=== PATIENT | female | born 1935 | race Caucasian/White ===

== ENCOUNTER 2017-08-04 16:10 | Inpatient (IN) | payer OTHER ==
[~2017-08-04] VITALS: Ht 152.4 cm; Wt 78.2 kg
[2017-08-04 16:45] LABS: BASOPHIL (%) 0.7 % (0-1); EOSINOPHIL (%) 0.3 % (0-5); HEMATOCRIT 30.6 % (36.0-46.0); HEMOGLOBIN 10.2 G/DL (11.9-15.5); IMMATURE GRANULOCYTE (%) 0.2 % (0.0-0.7); LYMPHOCYTE (%) 9.6 % (15-42); LYMPHOCYTE COUNT 0.6 K/uL (1.0-2.8); MCHC 33.3 G/DL (30.0-36.0); MONOCYTE (%) 15.7 % (3-12); MONOCYTE COUNT 0.9 K/uL (0-0.8); NEUTROPHIL (%) 73.5 % (45-76); NEUTROPHIL COUNT 4.3 K/uL (1.8-6.4); PLATELET COUNT 279 K/uL (156-360); RBC DIS.WIDTH-CV 15.2 % (11.8-14.6); RBC DIS.WIDTH-SD 52.3 % (39-53); RED BLOOD COUNT 3.29 M/uL (3.80-5.20); WHITE BLOOD COUNT 5.9 K/uL (4.1-10.2)
[2017-08-04 16:57] LABS: ALBUMIN 3.6 g/dL (3.2-4.8); CHLORIDE 89 mEq/L (99-109); POTASSIUM 5.4 mEq/L (3.7-5.4); SODIUM 125 mEq/L (136-147)
[2017-08-04 16:59] LABS: GLUCOSE 138 mg/dL (70-99); TOTAL PROTEIN 7.6 g/dL (6.4-8.3)
[2017-08-04 17:01] LABS: TOTAL BILIRUBIN 1.4 mg/dL (0.0-1.0)
[2017-08-04 17:03] LABS: ALKALINE PHOSPHATASE 128 IU/L (3-129); CREATININE 1.4 mg/dL (0.6-1.3)
[2017-08-04 17:04] LABS: UREA NITROGEN (BUN) 34 mg/dL (9-23)
[2017-08-04 17:05] LABS: AST (GOT) 25 IU/L (2-34); GFR ESTIMATE (CALCULATED) 38 mL/min/
[2017-08-04 17:06] LABS: ALT (GPT) 15 IU/L (3-49)
[2017-08-04 17:08] LABS: TROP-I INTERPRETATION NEGATIVE; TROPONIN-I 0.04 ng/mL (0.0-0.30)
[2017-08-04 18:24] LABS: APPEARANCE CLEAR ((CLEAR)); BILIRUBIN NEGATIVE; BLOOD NEGATIVE; COLOR YELLOW ((YELLOW)); GLUCOSE (STRIP) NEGATIVE; KETONES NEGATIVE; LEUKOCYTES NEGATIVE; NITRITE NEGATIVE; PROTEIN (STRIP) NEGATIVE; SPECIFIC GRAVITY 1.008 (1.000-1.030); UCUL ADDED? NO; UROBILINOGEN 0.2 MG/DL (0.2-1.0)
[2017-08-04] MEDS ORDERED: PULMICORT0.5 MG/21 IH (18:58)
[2017-08-04] MEDS ORDERED: ALDACTONE25 MG PO (18:58)
[2017-08-04] MEDS ORDERED: CORDARONE200 MG PO (18:58)
[2017-08-04] MEDS ORDERED: AMLACTIN140 GM TP (18:59)
[2017-08-04] MEDS ORDERED: LASIX20 MG PO (18:59)
[2017-08-04] MEDS ORDERED: NIZORAL 2% CREA15 GM TP (18:59)
[2017-08-04] MEDS ORDERED: PERFOROMIS20 MCG/2 M IH (19:00)
[2017-08-04] MEDS ORDERED: PEPCID20 MG PO (19:00)
[2017-08-04] MEDS ORDERED: ELIQUIS5 MG PO (19:00)
[2017-08-04] MEDS ORDERED: CONSTULOSE10 GM/15 M PO (19:00)
[2017-08-04] MEDS ORDERED: CENTRUM SILVER1 EAC3 PO (19:01)
[2017-08-04] MEDS ORDERED: VITAMIN D31000 UNI2 PO (19:01)
[2017-08-04] MEDS ORDERED: MELATONIN3 MG PO (19:01)
[2017-08-04] MEDS ORDERED: SENNA-S TABLET1 EACH PO (19:01)
[2017-08-04] MEDS ORDERED: BIOFREEZE TP (19:02)
[2017-08-04] MEDS ORDERED: TYLENOL EXTRA500 MG PO (19:02)
[2017-08-04 21:47] VITALS: BP 104/56
[2017-08-04 23:50] VITALS: BP 106/52
[2017-08-05] VITALS (8 sets, daily range): BP systolic 91–161; BP diastolic 43–74
[2017-08-05 06:13] LABS: BASOPHIL COUNT 0.1 K/uL (0-0.1); EOSINOPHIL (%) 1.6 % (0-5); EOSINOPHIL COUNT 0.1 K/uL (0-0.3); HEMOGLOBIN 9.2 G/DL (11.9-15.5); IMMATURE GRANULOCYTE (%) 0.4 % (0.0-0.7); LYMPHOCYTE (%) 14.6 % (15-42); LYMPHOCYTE COUNT 0.8 K/uL (1.0-2.8); MCH 29.8 PG (29.0-34.0); MCHC 31.7 G/DL (30.0-36.0); MCV 93.9 FL (83-99); MONOCYTE (%) 17.3 % (3-12); MONOCYTE COUNT 0.9 K/uL (0-0.8); NEUTROPHIL (%) 65.1 % (45-76); NEUTROPHIL COUNT 3.3 K/uL (1.8-6.4); PLATELET COUNT 263 K/uL (156-360); RBC DIS.WIDTH-CV 15.3 % (11.8-14.6); RBC DIS.WIDTH-SD 52.6 % (39-53); RED BLOOD COUNT 3.09 M/uL (3.80-5.20); WHITE BLOOD COUNT 5.1 K/uL (4.1-10.2)
[2017-08-05 06:25] LABS: ALKALINE PHOSPHATASE 105 IU/L (3-129); ALT (GPT) 11 IU/L (3-49); AST (GOT) 17 IU/L (2-34); CHLORIDE 88 MEQ/L (99-109); CREATININE 1.2 MG/DL (0.6-1.3); GFR ESTIMATE (CALCULATED) 45 mL/min/; POTASSIUM 4.6 MEQ/L (3.7-5.4); SODIUM 126 MEQ/L (136-147); TOTAL BILIRUBIN 0.9 MG/DL (0.0-1.0); TOTAL PROTEIN 6.3 G/DL (6.4-8.3); UREA NITROGEN (BUN) 32 mg/dL (9-23)
[2017-08-05 06:31] LABS: GLUCOSE 100 mg/dL (70-99)
[2017-08-05 08:53] LABS: URIC ACID 6.6 mg/dL (3.1-9.2)
[2017-08-05 19:11] LABS: ALBUMIN 3.2 G/DL (3.2-4.8); CHLORIDE 85 MEQ/L (99-109); CREATININE 1.3 MG/DL (0.6-1.3); GFR ESTIMATE (CALCULATED) 41 mL/min/; PHOSPHORUS 3.7 mg/dL (2.5-4.9); POTASSIUM 5.2 MEQ/L (3.7-5.4); SODIUM 124 MEQ/L (136-147); UREA NITROGEN (BUN) 31 mg/dL (9-23)
[2017-08-05 19:44] LABS: GLUCOSE 161 mg/dL (70-99)
[2017-08-06 04:03] VITALS: BP 122/58
[2017-08-06 07:14] VITALS: BP 126/60
[2017-08-06 08:59] LABS: HEMATOCRIT 32.2 % (36.0-46.0); HEMOGLOBIN 10.3 G/DL (11.9-15.5); MCH 30.4 PG (29.0-34.0); RBC DIS.WIDTH-CV 15.6 % (11.8-14.6); RBC DIS.WIDTH-SD 53.9 % (39-53); RED BLOOD COUNT 3.39 M/uL (3.80-5.20); WHITE BLOOD COUNT 5.5 K/uL (4.1-10.2)
[2017-08-06 09:23] LABS: CHLORIDE 85 MEQ/L (99-109); CREATININE 1.2 MG/DL (0.6-1.3); GFR ESTIMATE (CALCULATED) 45 mL/min/; GLUCOSE 149 mg/dL (70-99); POTASSIUM 4.8 MEQ/L (3.7-5.4); SODIUM 125 MEQ/L (136-147); UREA NITROGEN (BUN) 33 mg/dL (9-23)
[2017-08-06 09:45] LABS: PLAT.SUFFICIENCY ADEQUATE; PLATELET COUNT 303 K/uL (156-360)
[2017-08-06 11:10] VITALS: BP 135/61
[2017-08-06 15:22] VITALS: BP 141/65
[2017-08-06 20:18] VITALS: BP 140/77
[2017-08-07 00:49] VITALS: BP 103/58
[2017-08-07 04:11] VITALS: BP 107/51
[2017-08-07 05:42] LABS: BASOPHIL (%) 0.9 % (0-1); BASOPHIL COUNT 0.1 K/uL (0-0.1); EOSINOPHIL (%) 1.3 % (0-5); EOSINOPHIL COUNT 0.1 K/uL (0-0.3); HEMATOCRIT 30.8 % (36.0-46.0); HEMOGLOBIN 9.7 G/DL (11.9-15.5); IMMATURE GRANULOCYTE (%) 0.2 % (0.0-0.7); LYMPHOCYTE (%) 16.7 % (15-42); LYMPHOCYTE COUNT 0.9 K/uL (1.0-2.8); MCH 29.8 PG (29.0-34.0); MCHC 31.5 G/DL (30.0-36.0); MCV 94.5 FL (83-99); MONOCYTE (%) 14.1 % (3-12); MONOCYTE COUNT 0.8 K/uL (0-0.8); NEUTROPHIL (%) 66.8 % (45-76); NEUTROPHIL COUNT 3.7 K/uL (1.8-6.4); PLATELET COUNT 281 K/uL (156-360); RBC DIS.WIDTH-CV 14.9 % (11.8-14.6); RED BLOOD COUNT 3.26 M/uL (3.80-5.20); WHITE BLOOD COUNT 5.5 K/uL (4.1-10.2)
[2017-08-07 07:06] VITALS: BP 119/77
[2017-08-07 07:36] LABS: CHLORIDE 86 MEQ/L (99-109); CREATININE 1.2 MG/DL (0.6-1.3); GFR ESTIMATE (CALCULATED) 45 mL/min/; POTASSIUM 5.5 MEQ/L (3.7-5.4); SODIUM 126 MEQ/L (136-147); UREA NITROGEN (BUN) 35 mg/dL (9-23)
[2017-08-07 07:37] LABS: GLUCOSE 106 mg/dL (70-99)
[2017-08-07 09:29] LABS: HEMOGLOBIN A1c (GLYCOHEMOGLOB) 5.4 % (Below 5.7)
[2017-08-07 11:53] VITALS: BP 137/67
[2017-08-07 16:29] VITALS: BP 121/58
[2017-08-07 16:53] LABS: CHLORIDE 86 MEQ/L (99-109); CREATININE 1.2 MG/DL (0.6-1.3); GFR ESTIMATE (CALCULATED) 45 mL/min/; GLUCOSE 152 mg/dL (70-99); POTASSIUM 4.8 MEQ/L (3.7-5.4); SODIUM 126 MEQ/L (136-147); UREA NITROGEN (BUN) 34 mg/dL (9-23)
[2017-08-07 20:12] VITALS: BP 133/66
[2017-08-08] VITALS (8 sets, daily range): BP systolic 115–143; BP diastolic 52–79
[2017-08-08 05:40] LABS: BASOPHIL (%) 0.8 % (0-1); BASOPHIL COUNT 0.1 K/uL (0-0.1); EOSINOPHIL (%) 1.4 % (0-5); EOSINOPHIL COUNT 0.1 K/uL (0-0.3); HEMATOCRIT 31.1 % (36.0-46.0); HEMOGLOBIN 9.9 G/DL (11.9-15.5); IMMATURE GRANULOCYTE (%) 0.5 % (0.0-0.7); LYMPHOCYTE (%) 14.6 % (15-42); LYMPHOCYTE COUNT 0.9 K/uL (1.0-2.8); MCH 30.1 PG (29.0-34.0); MCHC 31.8 G/DL (30.0-36.0); MCV 94.5 FL (83-99); MONOCYTE (%) 14.9 % (3-12); MONOCYTE COUNT 0.9 K/uL (0-0.8); NEUTROPHIL (%) 67.8 % (45-76); PLATELET COUNT 291 K/uL (156-360); RBC DIS.WIDTH-CV 14.9 % (11.8-14.6); RBC DIS.WIDTH-SD 51.9 % (39-53); RED BLOOD COUNT 3.29 M/uL (3.80-5.20); WHITE BLOOD COUNT 5.9 K/uL (4.1-10.2)
[2017-08-08 06:04] LABS: CHLORIDE 85 MEQ/L (99-109); CREATININE 1.2 MG/DL (0.6-1.3); GFR ESTIMATE (CALCULATED) 45 mL/min/; POTASSIUM 4.7 MEQ/L (3.7-5.4); SODIUM 125 MEQ/L (136-147); UREA NITROGEN (BUN) 32 mg/dL (9-23)
[2017-08-08 06:09] LABS: GLUCOSE 99 mg/dL (70-99)
[2017-08-08 12:52] LABS: BASE EXCESS 8.9 mEq/L (-3 to +3); BICARBONATE 36.9 mEq/L (22-26); COMMENTS - BLOOD GASES A+C+; DEVICE NC; METHEMOGLOBIN 1.6 % (0-1.5); O2 FLOW 2 L/MIN; PCO2 70 mm Hg (35-45); PO2 80 mm Hg (80-100); SITE LR; TOTAL RESP RATE 24 resp/min; pH 7.33 (7.35-7.45)
[2017-08-08 16:16] LABS: BASE EXCESS 8.4 mEq/L (-3 to +3); BICARBONATE 36.9 mEq/L (22-26); CARBOXY HGB 2.3 % (0-5); COMMENTS - BLOOD GASES A+C+; DEVICE NC; METHEMOGLOBIN 1.5 % (0-1.5); O2 FLOW 2 L/MIN; PCO2 75 mm Hg (35-45); PO2 76 mm Hg (80-100); SITE RR
[2017-08-08 17:10] LABS: CHLORIDE 86 MEQ/L (99-109); POTASSIUM 4.9 MEQ/L (3.7-5.4); SODIUM 124 MEQ/L (136-147)
[2017-08-08 17:16] LABS: CREATININE 1.2 MG/DL (0.6-1.3); GFR ESTIMATE (CALCULATED) 45 mL/min/; UREA NITROGEN (BUN) 34 mg/dL (9-23)
[2017-08-08 17:28] LABS: GLUCOSE 152 mg/dL (70-99)
[2017-08-09 05:58] LABS: ALBUMIN 3.2 G/DL (3.2-4.8); CHLORIDE 86 MEQ/L (99-109); CREATININE 1.2 MG/DL (0.6-1.3); GFR ESTIMATE (CALCULATED) 45 mL/min/; GLUCOSE 169 mg/dL (70-99); PHOSPHORUS 3.4 mg/dL (2.5-4.9); POTASSIUM 4.4 MEQ/L (3.7-5.4); SODIUM 127 MEQ/L (136-147); UREA NITROGEN (BUN) 35 mg/dL (9-23)
[2017-08-09 09:00] VITALS: BP 124/57
[2017-08-09 12:00] VITALS: BP 145/65
[2017-08-09 16:22] VITALS: BP 148/77
[2017-08-09 17:47] VITALS: BP 133/60
[2017-08-10] VITALS (7 sets, daily range): BP systolic 110–140; BP diastolic 57–64
[2017-08-10 05:41] LABS: ALBUMIN 3.4 G/DL (3.2-4.8); CHLORIDE 85 MEQ/L (99-109); CREATININE 1.3 MG/DL (0.6-1.3); GFR ESTIMATE (CALCULATED) 41 mL/min/; GLUCOSE 172 mg/dL (70-99); PHOSPHORUS 3.8 mg/dL (2.5-4.9); POTASSIUM 4.2 MEQ/L (3.7-5.4); SODIUM 130 MEQ/L (136-147); UREA NITROGEN (BUN) 43 mg/dL (9-23)
[2017-08-11 04:00] VITALS: BP 129/60
[2017-08-11 05:48] LABS: BASOPHIL (%) 0 % (0-1); EOSINOPHIL (%) 0 % (0-5); HEMATOCRIT 30.8 % (36.0-46.0); HEMOGLOBIN 9.9 G/DL (11.9-15.5); IMMATURE GRANULOCYTE (%) 0.3 % (0.0-0.7); LYMPHOCYTE (%) 3.1 % (15-42); LYMPHOCYTE COUNT 0.2 K/uL (1.0-2.8); MCH 30.6 PG (29.0-34.0); MCHC 32.1 G/DL (30.0-36.0); MCV 95.1 FL (83-99); MONOCYTE (%) 3.6 % (3-12); MONOCYTE COUNT 0.2 K/uL (0-0.8); NEUTROPHIL COUNT 5.4 K/uL (1.8-6.4); NRBC (%) 0.3 /100 WBC (0-0); PLATELET COUNT 272 K/uL (156-360); RBC DIS.WIDTH-CV 15.1 % (11.8-14.6); RBC DIS.WIDTH-SD 52.7 % (39-53); RED BLOOD COUNT 3.24 M/uL (3.80-5.20); WHITE BLOOD COUNT 5.8 K/uL (4.1-10.2)
[2017-08-11 06:15] LABS: ALBUMIN 3.3 G/DL (3.2-4.8); CHLORIDE 86 MEQ/L (99-109); CREATININE 1.3 MG/DL (0.6-1.3); GFR ESTIMATE (CALCULATED) 41 mL/min/; GLUCOSE 171 mg/dL (70-99); PHOSPHORUS 4.6 mg/dL (2.5-4.9); POTASSIUM 3.7 MEQ/L (3.7-5.4); SODIUM 132 MEQ/L (136-147); UREA NITROGEN (BUN) 52 mg/dL (9-23)
[2017-08-11 09:18] LABS: BICARBONATE 44.6 mEq/L (22-26); CARBOXY HGB 2.1 % (0-5); COMMENTS - BLOOD GASES A+C+; DEVICE NC; METHEMOGLOBIN 1.9 % (0-1.5); O2 FLOW 4 L/MIN; PCO2 79 mm Hg (35-45); PO2 78 mm Hg (80-100); SITE LR; TOTAL RESP RATE 22 resp/min; pH 7.36 (7.35-7.45)
[2017-08-11 09:35] VITALS: BP 136/77
[2017-08-11 12:34] VITALS: BP 126/74
[2017-08-11 19:30] VITALS: BP 134/62
[2017-08-11 23:00] VITALS: BP 124/60
[2017-08-12 04:30] VITALS: BP 120/62
[2017-08-12 05:22] LABS: BASOPHIL (%) 0 % (0-1); EOSINOPHIL (%) 0 % (0-5); HEMATOCRIT 33.1 % (36.0-46.0); HEMOGLOBIN 10.3 G/DL (11.9-15.5); IMMATURE GRANULOCYTE (%) 0.5 % (0.0-0.7); LYMPHOCYTE (%) 3.6 % (15-42); LYMPHOCYTE COUNT 0.2 K/uL (1.0-2.8); MCH 29.8 PG (29.0-34.0); MCHC 31.1 G/DL (30.0-36.0); MCV 95.7 FL (83-99); MONOCYTE (%) 6.3 % (3-12); MONOCYTE COUNT 0.4 K/uL (0-0.8); NEUTROPHIL (%) 89.6 % (45-76); NEUTROPHIL COUNT 5.7 K/uL (1.8-6.4); PLATELET COUNT 263 K/uL (156-360); RBC DIS.WIDTH-SD 52.7 % (39-53); RED BLOOD COUNT 3.46 M/uL (3.80-5.20); WHITE BLOOD COUNT 6.4 K/uL (4.1-10.2)
[2017-08-12 05:49] LABS: ALBUMIN 3.2 G/DL (3.2-4.8); ALKALINE PHOSPHATASE 107 IU/L (3-129); ALT (GPT) 19 IU/L (3-49); AST (GOT) 22 IU/L (2-34); CHLORIDE 88 MEQ/L (99-109); CREATININE 1.6 MG/DL (0.6-1.3); DIRECT BILIRUBIN 0.3 mg/dL (0.0-0.3); GFR ESTIMATE (CALCULATED) 33 mL/min/; GLUCOSE 169 mg/dL (70-99); SODIUM 138 MEQ/L (136-147); TOTAL BILIRUBIN 0.9 MG/DL (0.0-1.0); TOTAL PROTEIN 6.6 G/DL (6.4-8.3); UREA NITROGEN (BUN) 64 mg/dL (9-23)
[2017-08-12 07:41] VITALS: BP 143/73
[2017-08-12 10:53] VITALS: BP 114/59
[2017-08-12 16:15] VITALS: BP 125/60
[2017-08-12 19:00] VITALS: BP 141/66
[2017-08-12 22:30] VITALS: BP 98/56
[2017-08-13 03:30] VITALS: BP 136/67
[2017-08-13 05:26] LABS: BASOPHIL (%) 0.1 % (0-1); EOSINOPHIL (%) 0 % (0-5); HEMATOCRIT 32.8 % (36.0-46.0); HEMOGLOBIN 10.2 G/DL (11.9-15.5); IMMATURE GRANULOCYTE (%) 0.6 % (0.0-0.7); LYMPHOCYTE (%) 4.6 % (15-42); LYMPHOCYTE COUNT 0.3 K/uL (1.0-2.8); MCH 29.8 PG (29.0-34.0); MCHC 31.1 G/DL (30.0-36.0); MCV 95.9 FL (83-99); MONOCYTE (%) 6.6 % (3-12); MONOCYTE COUNT 0.4 K/uL (0-0.8); NEUTROPHIL (%) 88.1 % (45-76); NEUTROPHIL COUNT 5.9 K/uL (1.8-6.4); PLATELET COUNT 241 K/uL (156-360); RBC DIS.WIDTH-CV 14.8 % (11.8-14.6); RBC DIS.WIDTH-SD 52.1 % (39-53); RED BLOOD COUNT 3.42 M/uL (3.80-5.20); WHITE BLOOD COUNT 6.7 K/uL (4.1-10.2)
[2017-08-13 06:20] LABS: CHLORIDE 87 MEQ/L (99-109); CREATININE 1.6 MG/DL (0.6-1.3); GFR ESTIMATE (CALCULATED) 33 mL/min/; GLUCOSE 176 mg/dL (70-99); POTASSIUM 4.1 MEQ/L (3.7-5.4); SODIUM 134 MEQ/L (136-147); UREA NITROGEN (BUN) 72 mg/dL (9-23)
[2017-08-13 07:16] VITALS: BP 147/74
[2017-08-13 11:57] VITALS: BP 138/61
[2017-08-13 15:08] VITALS: BP 134/72
[2017-08-13 19:40] VITALS: BP 137/65
[2017-08-14] VITALS (8 sets, daily range): BP systolic 130–154; BP diastolic 60–77
[2017-08-14 05:19] LABS: BASOPHIL (%) 0.2 % (0-1); EOSINOPHIL (%) 0 % (0-5); HEMATOCRIT 33.6 % (36.0-46.0); HEMOGLOBIN 10.6 G/DL (11.9-15.5); IMMATURE GRANULOCYTE (%) 0.8 % (0.0-0.7); LYMPHOCYTE (%) 3.5 % (15-42); LYMPHOCYTE COUNT 0.2 K/uL (1.0-2.8); MCH 30.6 PG (29.0-34.0); MCHC 31.5 G/DL (30.0-36.0); MCV 97.1 FL (83-99); MONOCYTE (%) 7.5 % (3-12); MONOCYTE COUNT 0.5 K/uL (0-0.8); NEUTROPHIL COUNT 5.9 K/uL (1.8-6.4); PLATELET COUNT 229 K/uL (156-360); RBC DIS.WIDTH-CV 14.7 % (11.8-14.6); RBC DIS.WIDTH-SD 52.7 % (39-53); RED BLOOD COUNT 3.46 M/uL (3.80-5.20); WHITE BLOOD COUNT 6.7 K/uL (4.1-10.2)
[2017-08-14 05:49] LABS: CREATININE 1.5 MG/DL (0.6-1.3); GLUCOSE 189 mg/dL (70-99); UREA NITROGEN (BUN) 69 mg/dL (9-23)
[2017-08-14 05:50] LABS: CARBON DIOXIDE (BICARBONATE) > 40.0 MEQ/L (20-31); CHLORIDE 87 MEQ/L (99-109); GFR ESTIMATE (CALCULATED) 35 mL/min/; POTASSIUM 3.9 MEQ/L (3.7-5.4); SODIUM 137 MEQ/L (136-147)
[2017-08-14 07:31] LABS: INTER. NORMALIZED RATIO 1.3
[2017-08-14 07:34] LABS: PTT 29.5 SEC (25-37)
[2017-08-14 17:10] LABS: CHLORIDE 89 MEQ/L (99-109); POTASSIUM 4.3 MEQ/L (3.7-5.4); SODIUM 137 MEQ/L (136-147)
[2017-08-14 17:11] LABS: CARBON DIOXIDE (BICARBONATE) > 40.0 MEQ/L (20-31)
[2017-08-14 17:17] LABS: CREATININE 1.4 MG/DL (0.6-1.3); GFR ESTIMATE (CALCULATED) 38 mL/min/; GLUCOSE 164 mg/dL (70-99); UREA NITROGEN (BUN) 69 mg/dL (9-23)
[2017-08-15] VITALS (7 sets, daily range): BP systolic 128–150; BP diastolic 60–85
[2017-08-15 05:27] LABS: BASOPHIL (%) 0.1 % (0-1); EOSINOPHIL (%) 0 % (0-5); HEMATOCRIT 34.8 % (36.0-46.0); HEMOGLOBIN 10.5 G/DL (11.9-15.5); IMMATURE GRANULOCYTE (%) 0.5 % (0.0-0.7); LYMPHOCYTE COUNT 0.2 K/uL (1.0-2.8); MCH 30.3 PG (29.0-34.0); MCHC 30.2 G/DL (30.0-36.0); MCV 100.3 FL (83-99); MONOCYTE (%) 4.8 % (3-12); MONOCYTE COUNT 0.4 K/uL (0-0.8); NEUTROPHIL (%) 91.6 % (45-76); NEUTROPHIL COUNT 6.7 K/uL (1.8-6.4); PLATELET COUNT 192 K/uL (156-360); RBC DIS.WIDTH-CV 14.9 % (11.8-14.6); RBC DIS.WIDTH-SD 55.2 % (39-53); RED BLOOD COUNT 3.47 M/uL (3.80-5.20); WHITE BLOOD COUNT 7.3 K/uL (4.1-10.2)
[2017-08-15 06:23] LABS: CHLORIDE 89 MEQ/L (99-109); CREATININE 1.5 MG/DL (0.6-1.3); GFR ESTIMATE (CALCULATED) 35 mL/min/; GLUCOSE 195 mg/dL (70-99); POTASSIUM 4.8 MEQ/L (3.7-5.4); SODIUM 136 MEQ/L (136-147); UREA NITROGEN (BUN) 75 mg/dL (9-23)
[2017-08-15 16:50] LABS: APPEARANCE CLEAR ((CLEAR)); BILIRUBIN NEGATIVE; BLOOD NEGATIVE; COLOR YELLOW ((YELLOW)); GLUCOSE (STRIP) NEGATIVE; KETONES NEGATIVE; LEUKOCYTES SMALL; NITRITE NEGATIVE; PROTEIN (STRIP) NEGATIVE; SPECIFIC GRAVITY 1.016 (1.000-1.030); UROBILINOGEN 0.2 MG/DL (0.2-1.0)
[2017-08-15 16:57] LABS: BACTERIA NONE SEEN /HPF; EPITHELIAL CELLS 1+ /HPF; MUCUS TRACE /LPF; RED BLOOD CELLS 0-5 /HPF (0-5); UCUL ADDED? YES
[2017-08-16 04:04] VITALS: BP 129/60
[2017-08-16 06:00] LABS: BASOPHIL (%) 0 % (0-1); EOSINOPHIL (%) 0 % (0-5); HEMATOCRIT 35.1 % (36.0-46.0); HEMOGLOBIN 10.6 G/DL (11.9-15.5); IMMATURE GRANULOCYTE (%) 0.4 % (0.0-0.7); LYMPHOCYTE (%) 4.2 % (15-42); LYMPHOCYTE COUNT 0.3 K/uL (1.0-2.8); MCH 30.4 PG (29.0-34.0); MCHC 30.2 G/DL (30.0-36.0); MCV 100.6 FL (83-99); MONOCYTE (%) 6.9 % (3-12); MONOCYTE COUNT 0.5 K/uL (0-0.8); NEUTROPHIL (%) 88.5 % (45-76); NEUTROPHIL COUNT 6.1 K/uL (1.8-6.4); PLATELET COUNT 179 K/uL (156-360); RBC DIS.WIDTH-CV 14.5 % (11.8-14.6); RBC DIS.WIDTH-SD 53.2 % (39-53); RED BLOOD COUNT 3.49 M/uL (3.80-5.20); WHITE BLOOD COUNT 6.9 K/uL (4.1-10.2)
[2017-08-16 06:26] LABS: ALBUMIN 3.3 G/DL (3.2-4.8); CHLORIDE 87 MEQ/L (99-109); CREATININE 1.4 MG/DL (0.6-1.3); GFR ESTIMATE (CALCULATED) 38 mL/min/; GLUCOSE 180 mg/dL (70-99); PHOSPHORUS 4.6 mg/dL (2.5-4.9); POTASSIUM 4.6 MEQ/L (3.7-5.4); SODIUM 136 MEQ/L (136-147); UREA NITROGEN (BUN) 82 mg/dL (9-23)
[2017-08-16 06:37] LABS: CARBON DIOXIDE (BICARBONATE) > 40.0 MEQ/L (20-31)
[2017-08-16 08:00] VITALS: BP 148/68
[2017-08-16 10:28] VITALS: BP 133/61
[2017-08-16] MEDS ORDERED: DOXYCYCLINE HY100 M3 PO (11:22)
[2017-08-16] MEDS ORDERED: ELIQUIS2.5 MG PO (11:22)
[2017-08-16] MEDS ORDERED: DILTIAZEM 24HR120 MG PO (11:23)
[2017-08-16] MEDS ORDERED: BUMETANIDE1 MG PO (11:23)
[2017-08-16] MEDS ORDERED: SPIRIVA RESPIMAT4 GM IH (11:23)
[2017-08-16 14:35] LABS: BASE EXCESS 17.7 mEq/L (-3 to +3); BICARBONATE 46.9 mEq/L (22-26); CARBOXY HGB 2.3 % (0-5); METHEMOGLOBIN 1.8 % (0-1.5); pH 7.35 (7.35-7.45)
[2017-08-16 14:36] LABS: PCO2 85 mm Hg (35-45); PO2 57 mm Hg (80-100); SITE RR
[2017-08-16 14:37] LABS: COMMENTS - BLOOD GASES A+C+; DEVICE NC; O2 FLOW 2 L/MIN; TOTAL RESP RATE 12 resp/min
[2017-08-16 15:21] VITALS: BP 127/60
== END 2017-08-16 16:11 | DRG 291 ==
LOC: EME 16:10 → 2EAST 19:55 → EDOF 19:55 → ENRESERV 19:57 → 2EAST 21:16 → ENRESERV 08-08 16:52 → 4EAST 08-08 18:06 → ENPENDDIS 08-16 → ENRESERV 08-16 09:09 → CANRESERV 08-16 09:09 → 4EAST 08-16 16:11
PROVIDERS: Emergency Medicine; Hospitalist; Internal Medicine; Internal Medicine Nephrology; Radiology Diagnostic Radiology; Student in an Organized Health Care Education/Training Program
PROC: 5A09357 Assistance with Respiratory Ventilation, Less than 24 Consecutive Hours, Continuous Positive Airway Pressure (ICD-10-PCS; principal; 2017-08-11)
PROC: 0WBH3ZX Excision of Retroperitoneum, Percutaneous Approach, Diagnostic (ICD-10-PCS; 2017-08-14)
DX: I13.0 Hypertensive heart and chronic kidney disease with heart failure and stage 1 through stage 4 chronic kidney disease, or unspecified chronic kidney disease (principal); I50.33 Acute on chronic diastolic (congestive) heart failure; N18.3 Chronic kidney disease, stage 3 (moderate); J18.9 Pneumonia, unspecified organism; J44.0 Chronic obstructive pulmonary disease with (acute) lower respiratory infection; J44.1 Chronic obstructive pulmonary disease with (acute) exacerbation; E87.1 Hypo-osmolality and hyponatremia; E87.4 Mixed disorder of acid-base balance; T50.2X5A Adverse effect of carbonic-anhydrase inhibitors, benzothiadiazides and other diuretics, initial encounter; R06.03 Acute respiratory distress; N28.9 Disorder of kidney and ureter, unspecified; I27.22 Pulmonary hypertension due to left heart disease; I08.3 Combined rheumatic disorders of mitral, aortic and tricuspid valves; I48.1 Persistent atrial fibrillation; G93.41 Metabolic encephalopathy; R19.00 Intra-abdominal and pelvic swelling, mass and lump, unspecified site; D63.8 Anemia in other chronic diseases classified elsewhere; E87.5 Hyperkalemia; E87.8 Other disorders of electrolyte and fluid balance, not elsewhere classified; G47.33 Obstructive sleep apnea (adult) (pediatric); K21.9 Gastro-esophageal reflux disease without esophagitis; Z53.20 Procedure and treatment not carried out because of patient's decision for unspecified reasons; Z66 Do not resuscitate; Z77.22 Contact with and (suspected) exposure to environmental tobacco smoke (acute) (chronic); Z96.651 Presence of right artificial knee joint; E66.9 Obesity, unspecified; Z68.33 Body mass index [BMI] 33.0-33.9, adult; Z79.02 Long term (current) use of antithrombotics/antiplatelets; Z91.81 History of falling; Z87.440 Personal history of urinary (tract) infections; Z99.81 Dependence on supplemental oxygen; Z88.2 Allergy status to sulfonamides; Z88.8 Allergy status to other drugs, medicaments and biological substances
CPT/HCPCS: 36600; 71045; 71046; 71250; 72170; 74176; 76770; 77012; 80048; 80048 91; 80053; 80069; 80076; 81003; 82140; 82803; 83036; 83735; 83880; 83930; 83935; 84145 90; 84295; 84300; 84484; 84550; 85025; 85027; 85610; 85730; 87086; 87449; 88305; 93005; 93306; 94640; 94640 76; 94660; 94760; 94799; 97530 GO; 97530 GP; 99202; 99281; 99285; J0456; J0696; J1940; J2405; J2920; J2930; J7030; J7040; J8540

== ENCOUNTER 2017-11-06 14:27 | Inpatient (IN) | payer OTHER ==
[~2017-11-06] VITALS: Ht 152.4 cm; Wt 80.2 kg
[~2017-11-06 14:27] MED LIST: ALDACTONE25 MG PO; AMLACTIN140 GM TP; BIOFREEZE TP; BUMETANIDE1 MG PO; CENTRUM SILVER1 EAC3 PO; CONSTULOSE10 GM/15 M PO; CORDARONE200 MG PO; DILTIAZEM 24HR120 MG PO; DOXYCYCLINE HY100 M3 PO; ELIQUIS2.5 MG PO; ELIQUIS5 MG PO; LASIX20 MG PO; MELATONIN3 MG PO; NIZORAL 2% CREA15 GM TP; PEPCID20 MG PO; PERFOROMIS20 MCG/2 M IH; PULMICORT0.5 MG/21 IH; SENNA-S TABLET1 EACH PO; SPIRIVA RESPIMAT4 GM IH; TYLENOL EXTRA500 MG PO; VITAMIN D31000 UNI2 PO
[2017-11-06 15:12] LABS: HEMATOCRIT 28.4 % (36.0-46.0); HEMOGLOBIN 8.8 G/DL (11.9-15.5); MCH 29.2 PG (29.0-34.0); MCV 94.4 FL (83-99); PLATELET COUNT 314 K/uL (156-360); RBC DIS.WIDTH-CV 15.9 % (11.8-14.6); RBC DIS.WIDTH-SD 54.6 % (39-53); RED BLOOD COUNT 3.01 M/uL (3.80-5.20); WHITE BLOOD COUNT 8.7 K/uL (4.1-10.2)
[2017-11-06 15:20] LABS: ALBUMIN 2.7 g/dL (3.2-4.8); CHLORIDE 95 mEq/L (99-109); POTASSIUM 4.3 mEq/L (3.7-5.4); SODIUM 138 mEq/L (136-147)
[2017-11-06 15:23] LABS: GLUCOSE 178 mg/dL (70-99); TOTAL PROTEIN 6.8 g/dL (6.4-8.3)
[2017-11-06 15:25] LABS: TOTAL BILIRUBIN 0.5 mg/dL (0.0-1.0)
[2017-11-06 15:26] LABS: ALKALINE PHOSPHATASE 119 IU/L (3-129); CREATININE 1.2 mg/dL (0.6-1.3); GFR ESTIMATE (CALCULATED) 45 mL/min/
[2017-11-06 15:27] LABS: UREA NITROGEN (BUN) 29 mg/dL (9-23)
[2017-11-06 15:28] LABS: AST (GOT) 20 IU/L (2-34)
[2017-11-06 15:29] LABS: ALT (GPT) 14 IU/L (3-49)
[2017-11-06 15:32] LABS: TROP-I INTERPRETATION NEGATIVE; TROPONIN-I 0.05 ng/mL (0.0-0.30)
[2017-11-06 15:36] LABS: DIGOXIN < 0.3 ng/mL (0.8-2.0)
[2017-11-06] MEDS ORDERED: KLOR-CON 1010 ME1 PO (17:31)
[2017-11-06] MEDS ORDERED: FEOSOL325 MG PO (17:31)
[2017-11-06 17:32] VITALS: BP 150/65
[2017-11-06] MEDS ORDERED: IPRATR-ALBUTEROL3 ML IH (17:33)
[2017-11-06] MEDS ORDERED: KRISTALOSE20 GM PO (17:34)
[2017-11-06] MEDS ORDERED: LASIX40 MG PO ×2 (17:36)
[2017-11-06 19:13] VITALS: BP 107/62
[2017-11-06 20:55] VITALS: BP 120/70
[2017-11-06 22:06] LABS: TROP-I INTERPRETATION NEGATIVE; TROPONIN-I 0.05 ng/mL (0.0-0.30)
[2017-11-07 03:25] VITALS: BP 132/74
[2017-11-07 03:40] LABS: HEMATOCRIT 26.4 % (36.0-46.0); HEMOGLOBIN 8.3 G/DL (11.9-15.5); MCH 29.4 PG (29.0-34.0); MCHC 31.4 G/DL (30.0-36.0); MCV 93.6 FL (83-99); PLATELET COUNT 316 K/uL (156-360); RBC DIS.WIDTH-CV 15.8 % (11.8-14.6); RBC DIS.WIDTH-SD 53.7 % (39-53); RED BLOOD COUNT 2.82 M/uL (3.80-5.20); WHITE BLOOD COUNT 3.3 K/uL (4.1-10.2)
[2017-11-07 03:55] LABS: CHLORIDE 96 mEq/L (99-109); POTASSIUM 4.6 mEq/L (3.7-5.4); SODIUM 139 mEq/L (136-147)
[2017-11-07 03:56] LABS: MAGNESIUM 1.9 mg/dL (1.3-2.7)
[2017-11-07 03:57] LABS: GLUCOSE 172 mg/dL (70-99)
[2017-11-07 04:01] LABS: CREATININE 1.3 mg/dL (0.6-1.3); GFR ESTIMATE (CALCULATED) 41 mL/min/; TROP-I INTERPRETATION NEGATIVE; TROPONIN-I 0.04 ng/mL (0.0-0.30)
[2017-11-07 04:02] LABS: UREA NITROGEN (BUN) 31 mg/dL (9-23)
[2017-11-07 07:29] VITALS: BP 138/71
[2017-11-07 12:00] VITALS: BP 133/72
[2017-11-07 15:17] VITALS: BP 119/66
[2017-11-07 16:50] LABS: FERRITIN 140 NG/ML (10-291)
[2017-11-07 17:03] LABS: IRON 28 MCG/DL (35-150); TRANSFERRIN SATUR. 14 % (20-55)
[2017-11-07 17:04] LABS: FOLIC ACID (FOLATE) > 22.0 NG/ML (5.0-22.0)
[2017-11-07 19:56] VITALS: BP 139/68
[2017-11-08 00:11] VITALS: BP 125/75
[2017-11-08 04:10] VITALS: BP 138/65
[2017-11-08 05:56] LABS: HEMATOCRIT 27.9 % (36.0-46.0); HEMOGLOBIN 8.5 G/DL (11.9-15.5); MCH 29.3 PG (29.0-34.0); MCHC 30.5 G/DL (30.0-36.0); MCV 96.2 FL (83-99); PLATELET COUNT 334 K/uL (156-360); RBC DIS.WIDTH-CV 15.9 % (11.8-14.6); RBC DIS.WIDTH-SD 55.8 % (39-53); WHITE BLOOD COUNT 8.1 K/uL (4.1-10.2)
[2017-11-08 06:22] LABS: CHLORIDE 95 MEQ/L (99-109); CREATININE 1.1 MG/DL (0.6-1.3); GFR ESTIMATE (CALCULATED) 50 mL/min/; GLUCOSE 130 mg/dL (70-99); POTASSIUM 4.2 MEQ/L (3.7-5.4); SODIUM 139 MEQ/L (136-147); UREA NITROGEN (BUN) 34 mg/dL (9-23)
[2017-11-08 07:58] VITALS: BP 141/77
[2017-11-08 11:30] VITALS: BP 121/53
[2017-11-08 16:30] VITALS: BP 125/69
[2017-11-08 19:31] VITALS: BP 141/64
[2017-11-09 00:09] VITALS: BP 129/60
[2017-11-09 03:23] VITALS: BP 133/60
[2017-11-09 06:07] LABS: HEMATOCRIT 28.5 % (36.0-46.0); HEMOGLOBIN 8.5 G/DL (11.9-15.5); MCH 28.8 PG (29.0-34.0); MCHC 29.8 G/DL (30.0-36.0); MCV 96.6 FL (83-99); PLATELET COUNT 316 K/uL (156-360); RBC DIS.WIDTH-CV 16.1 % (11.8-14.6); RBC DIS.WIDTH-SD 56.9 % (39-53); RED BLOOD COUNT 2.95 M/uL (3.80-5.20); WHITE BLOOD COUNT 7.6 K/uL (4.1-10.2)
[2017-11-09 06:33] LABS: CHLORIDE 97 MEQ/L (99-109); CREATININE 1.1 MG/DL (0.6-1.3); GFR ESTIMATE (CALCULATED) 50 mL/min/; GLUCOSE 108 mg/dL (70-99); POTASSIUM 3.9 MEQ/L (3.7-5.4); SODIUM 141 MEQ/L (136-147); UREA NITROGEN (BUN) 34 mg/dL (9-23)
[2017-11-09 06:34] LABS: CARBON DIOXIDE (BICARBONATE) > 40.0 MEQ/L (20-31)
[2017-11-09 07:21] VITALS: BP 140/73
[2017-11-09 11:23] VITALS: BP 124/67
[2017-11-09 15:44] VITALS: BP 132/71
[2017-11-09 19:34] VITALS: BP 114/65
[2017-11-10 00:18] VITALS: BP 119/63
[2017-11-10 03:53] VITALS: BP 117/65
[2017-11-10 06:21] LABS: HEMATOCRIT 33.4 % (36.0-46.0); HEMOGLOBIN 9.5 G/DL (11.9-15.5); MCH 29.1 PG (29.0-34.0); MCHC 28.4 G/DL (30.0-36.0); MCV 102.5 FL (83-99); PLATELET COUNT 337 K/uL (156-360); RBC DIS.WIDTH-CV 15.9 % (11.8-14.6); RBC DIS.WIDTH-SD 60.5 % (39-53); RED BLOOD COUNT 3.26 M/uL (3.80-5.20); WHITE BLOOD COUNT 6.8 K/uL (4.1-10.2)
[2017-11-10 06:38] LABS: CHLORIDE 95 MEQ/L (99-109); CREATININE 1.3 MG/DL (0.6-1.3); GFR ESTIMATE (CALCULATED) 41 mL/min/; GLUCOSE 129 mg/dL (70-99); SODIUM 142 MEQ/L (136-147); UREA NITROGEN (BUN) 35 mg/dL (9-23)
[2017-11-10 07:04] LABS: CARBON DIOXIDE (BICARBONATE) > 40.0 MEQ/L (20-31); POTASSIUM 4.8 MEQ/L (3.7-5.4)
[2017-11-10 07:14] VITALS: BP 124/67
[2017-11-10 09:57] LABS: COMMENTS - BLOOD GASES A+C+; DEVICE NC; O2 FLOW 3 L/MIN; PCO2 122 mm Hg (35-45); PO2 75 mm Hg (80-100); SITE RR; pH 7.18 (7.35-7.45)
[2017-11-10 09:58] LABS: BASE EXCESS 13.8 mEq/L (-3 to +3); BICARBONATE 45.5 mEq/L (22-26); CARBOXY HGB 1.7 % (0-5); METHEMOGLOBIN 1.3 % (0-1.5)
== END 2017-11-10 16:50 | DRG 291 ==
LOC: EME 14:27 → ENRESERV 16:36 → EDOF 16:36 → 5SOUTH 16:36 → CANRESERV 16:36 → ENRESERV 16:48 → 5SOUTH 17:25
PROVIDERS: Emergency Medicine; Hospitalist; Physician Assistant; Physician Assistant Medical
DX: I13.0 Hypertensive heart and chronic kidney disease with heart failure and stage 1 through stage 4 chronic kidney disease, or unspecified chronic kidney disease (principal); I50.33 Acute on chronic diastolic (congestive) heart failure; J96.01 Acute respiratory failure with hypoxia; J96.02 Acute respiratory failure with hypercapnia; E87.2 Acidosis; J98.11 Atelectasis; J90 Pleural effusion, not elsewhere classified; Z51.5 Encounter for palliative care; Z66 Do not resuscitate; F05 Delirium due to known physiological condition; I48.1 Persistent atrial fibrillation; I35.0 Nonrheumatic aortic (valve) stenosis; I36.1 Nonrheumatic tricuspid (valve) insufficiency; N18.3 Chronic kidney disease, stage 3 (moderate); I48.2 Chronic atrial fibrillation; E11.22 Type 2 diabetes mellitus with diabetic chronic kidney disease; G47.33 Obstructive sleep apnea (adult) (pediatric); D50.8 Other iron deficiency anemias; I27.22 Pulmonary hypertension due to left heart disease; R32 Unspecified urinary incontinence; F41.9 Anxiety disorder, unspecified; E66.9 Obesity, unspecified; I27.81 Cor pulmonale (chronic); J44.9 Chronic obstructive pulmonary disease, unspecified; Z90.710 Acquired absence of both cervix and uterus; Z79.01 Long term (current) use of anticoagulants; Z91.11 Patient's noncompliance with dietary regimen; Z91.19 Patient's noncompliance with other medical treatment and regimen; Z88.2 Allergy status to sulfonamides; Z68.34 Body mass index [BMI] 34.0-34.9, adult; Z90.81 Acquired absence of spleen
CPT/HCPCS: 36600; 71045; 71046; 80048; 80053; 80162; 82272; 82607; 82728; 82746; 82948; 83540; 83735; 83880; 84145 90; 84466; 84484; 85027; 86850; 86900; 86901; 93005; 94640; 94799; 99281; 99285; J1644; J1815; J1940; J2270; J2405